=== PATIENT | female | born 1955 | race Caucasian/White ===

== ENCOUNTER 2020-01-01 14:18 | Emergency (ER) | payer MEDICARE ==
[2020-01-01] MEDS ORDERED: Acetaminophen/HYDROcodone 325-5 MG Tab PO ONE (14:19)
[2020-01-01 15:14] VITALS: BP 154/81; PULSE 84
[2020-01-01] MEDS ORDERED: HYDROmorphone 2 MG/ML SDV IVPUSH ONE (15:21)
[2020-01-01] MEDS ORDERED: Sodium Chloride 0.9% 10 ML Syringe FLUSH PRN (15:21)
[2020-01-01] MEDS ORDERED: Promethazine 25 MG/ML SDV IM ONE (15:22)
[2020-01-01] MEDS ORDERED: Sodium Chloride 0.9% 500 ML IV ONE (15:23)
--- NOTE | 2020-01-01 15:29 | EDM.PDOC ---
ED HPI GENERAL MEDICAL PROBLEM - General Chief Complaint: Abdominal Pain Stated Complaint: LEFT FLANK PAIN Time Seen by Provider: 01/01/20 15:25 Source of Information: Reports: Patient History Limitations: Reports: No Limitations - History of Present Illness INITIAL COMMENTS - FREE TEXT/NARRATIVE: Presents with left mid back pain that radiates to LUQ abdomen x 5 days. She is currently being treated with Levaquin and Keflex for right sided pneumonia. Patient endorses N/V. Denies prior history of kidney stones. She has had a ventral hernia x 5 years and is worried that it may be ruptured. Duration: Day(s): (5) Location: Reports: Abdomen L lower abdomen radiating to LLQ Pain Score (Numeric/FACES): 8 - Related Data Allergies Allergy/AdvReac Type Severity Reaction Status Date / Time morphine Allergy Rash Verified 01/01/20 15:03 oxycodone HCl [From Percocet] Allergy Rash Verified 01/01/20 15:03 Penicillins Allergy Swelling Verified 01/01/20 15:03 propoxyphene napsylate Allergy NA Verified 01/01/20 15:03 [From Darvocet-N 100] Home Meds: Home Meds Anastrozole [Arimidex] 1 mg PO DAILY 12/17/12 [History] Lisinopril 20 mg PO DAILY 12/17/12 [History] Omeprazole [Prilosec] 20 mg PO DAILY 12/17/12 [History] atorvaSTATin [Lipitor] 80 mg PO BEDTIME 12/17/12 [History] Aspirin 1 tab PO DAILY 11/05/13 [History] Nitroglycerin [Nitrostat] 1 tab PO ASDIRECTED PRN 11/05/13 [History] Clindamycin HCl 150 mg PO DAILY 01/07/16 [History] Clopidogrel Bisulfate [Clopidogrel] 75 mg PO BEDTIME 01/07/16 [History] Loratadine [Claritin] 10 mg PO DAILY 01/07/16 [History] Multivitamin [Daily Multiple Vitamin] 1 tab PO DAILY 01/07/16 [History] Oxybutynin 5 mg PO DAILY 01/07/16 [History] Acetaminophen/HYDROcodone [[place] 325-5 MG] 1 - 2 tab PO Q6H PRN #16 tab 01/01/20 [Rx] Furosemide [Lasix] 40 mg PO ASDIRECTED PRN 01/01/20 [History] Levofloxacin [Levaquin] 500 mg PO DAILY 01/01/20 [History] Nitrofurantoin Monohyd/M-Cryst [Macrobid 100 mg Capsule] 100 mg PO BID #14 capsule 01/01/20 [Rx] Promethazine [Phenergan] 25 mg PO Q6H PRN #12 tab 01/01/20 [Rx] carvediloL [Coreg] 12.5 mg PO BID 01/01/20 [History] Past Medical History Cardiovascular History: Reports: ME, Stents Other Cardiovascular History: 3 stents and 2 balloons. 2 heart attacks during chemo Respiratory History: Reports: COPD [facility] COORD[employer] History: Reports: Endocrine/Metabolic History: Reports: Obesity/BMI 30+ Oncologic (Cancer) History: Reports: Breast, Malignant Melanoma, Ovarian - Past Surgical History Cardiovascular Surgical History: Reports: Coronary Artery Stent, Percutaneous Transluminal Angioplasty Female Surgical History: Reports: Breast Biopsy, Section, Hysterectomy, Mastectomy, Other (See Below) Social & Family History - Tobacco Use Tobacco Use Status *Q: Current Every Day Tobacco User Tobacco Use Within Last Twelve Months: Cigarettes - Caffeine Use Caffeine Use: Reports: Coffee ED ROS GENERAL - Review of Systems Review Of Systems: Comprehensive ROS is negative, except as noted in HPI. ED EXAM, GI/ABD - Physical Exam Exam: See Below Exam Limited By: No Limitations General Appearance: Alert, WD/WN, No Apparent Distress Throat/Mouth: No Airway Compromise Head: Atraumatic, Normocephalic Neck: Full Range of Motion Respiratory/Chest: No Respiratory Distress, Lungs Clear, Normal Breath Sounds Cardiovascular: Regular Rate, Rhythm, No Murmur GI/Abdominal Exam: Soft, No Distention, Tender (overlying upper abdominal ventral hernia), Other (Ventral hernia successfully reduced) Back Exam: CVA Tenderness (L) Extremities: Normal Range of Motion Neurological: Alert, Normal Cognition Psychiatric: Normal Affect, Normal Mood Skin Exam: Warm, Dry, Intact Course - Vital Signs Last Recorded V/S: Last Vital Signs Temp 36.7 C 01/01/20 14:55 Pulse 84 01/01/20 14:55 Resp 18 01/01/20 14:55 BP 154/81 H 01/01/20 14:55 Pulse Ox 93 L 01/01/20 14:55 - Orders/Labs/Meds Orders: Active Orders 24 hr Category Date Time Status Abdomen Pelvis wo Cont [CT] Stat Exams 01/01/20 15:55 Taken CULTURE URINE [RM] Stat Lab 01/01/20 15:33 Received Nitrofurantoin [place]/Macrocryst [Macrobid] Med 01/01/20 17:17 Once 100 mg PO ONETIME ONE Sodium Chloride 0.9% [Saline Flush] Med 01/01/20 15:21 Active 10 ml FLUSH ASDIRECTED PRN Saline Lock Insert [OM.PC] Routine Oth 01/01/20 15:21 Ordered Medication Orders Sodium Chloride (Saline Flush) 10 ml FLUSH ASDIRECTED PRN PRN Reason: Keep Vein Open Labs: Laboratory Tests 01/01/20 01/01/20 01/01/20 Range/Units 15:33 15:40 15:40 WBC 11.1 (4.5-12.0) X10-3/uL RBC 4.50 (3.23-5.20) x10(6)uL Hgb 14.6 (11.5-15.5) g/dL Hct 42.1 (30.0-51.3) % MCV 93.5 (80-96) fL MCH 32.5 (27.7-33.6) pg MCHC 34.8 (32.2-35.4) g/dL RDW 13.5 (11.5-15.5) % Plt Count 231 (125-369) X10(3)uL MPV 8.2 (7.4-10.4) fL Neut % (Auto) 75.6 (46-82) % Lymph % (Auto) 18.1 (13-37) % [place] % (Auto) 4.9 (4-12) % Eos % (Auto) 1 (1.0-5.0) % Baso % (Auto) 0 (0-2) % Neut # (Auto) 8.5 H (1.6-8.3) # Lymph # (Auto) 2.0 (0.6-5.0) # [place] # (Auto) 0.5 (0.0-1.3) # Eos # (Auto) 0.1 (0.0-0.8) # Baso # (Auto) 0.0 (0.0-0.2) # Sodium 139 (135-145) mmol/L Potassium 3.6 (3.5-5.3) mmol/L Chloride 100 (100-110) mmol/L Carbon Dioxide 31 (21-32) mmol/L BUN 9 (7-18) mg/dL Creatinine 0.6 (0.55-1.02) mg/dL Est Cr Clr Drug Dosing 98.99 mL/min Estimated GFR (MDRD) > 60 (>60) BUN/Creatinine Ratio 15.0 (9-20) Glucose 100 (80-116) mg/dL Calcium 9.5 (8.6-10.2) mg/dL Total Bilirubin 0.8 (0.1-1.3) mg/dL AST 26 H (5-25) IU/L ALT 17 (12-36) U/L Alkaline Phosphatase 174 H (56-112) IU/L Total Protein 7.7 (6.0-8.0) g/dL Albumin 3.0 L (3.2-4.6) g/dL Globulin 4.7 g/dL Albumin/Globulin Ratio 0.6 Lipase (73-393) U/L Urine Color Yellow (YELLOW) Urine Appearance Cloudy (CLEAR) Urine pH 7.0 H (5.0-6.5) Ur Specific [place] 1.010 (1.010-1.025) Urine Protein 30 H (NEGATIVE) mg/dL Urine Glucose (UA) Normal (NORMAL) mg/dL Urine Ketones 15 H (NEGATIVE) mg/dL Urine Occult Blood Large H (NEGATIVE) Urine Nitrite Negative (NEGATIVE) Urine Bilirubin Negative (NEGATIVE) Urine Urobilinogen Normal (NEGATIVE) mg/dL Ur Leukocyte Esterase Large H (NEGATIVE) Urine RBC 10-20 H (0-5) Urine WBC >100 H (0-5) Ur Squamous Epith Cells Moderate H (NS,R,O) Urine Bacteria Moderate H (NS) 01/01/20 Range/Units 15:40 WBC (4.5-12.0) X10-3/uL RBC (3.23-5.20) x10(6)uL Hgb (11.5-15.5) g/dL Hct (30.0-51.3) % MCV (80-96) fL MCH (27.7-33.6) pg MCHC (32.2-35.4) g/dL RDW (11.5-15.5) % Plt Count (125-369) X10(3)uL MPV (7.4-10.4) fL Neut % (Auto) (46-82) % Lymph % (Auto) (13-37) % [place] % (Auto) (4-12) % Eos % (Auto) (1.0-5.0) % Baso % (Auto) (0-2) % Neut # (Auto) (1.6-8.3) # Lymph # (Auto) (0.6-5.0) # [place] # (Auto) (0.0-1.3) # Eos # (Auto) (0.0-0.8) # Baso # (Auto) (0.0-0.2) # Sodium (135-145) mmol/L Potassium (3.5-5.3) mmol/L Chloride (100-110) mmol/L Carbon Dioxide (21-32) mmol/L BUN (7-18) mg/dL Creatinine (0.55-1.02) mg/dL Est Cr Clr Drug Dosing mL/min Estimated GFR (MDRD) (>60) BUN/Creatinine Ratio (9-20) Glucose (80-116) mg/dL Calcium (8.6-10.2) mg/dL Total Bilirubin (0.1-1.3) mg/dL AST (5-25) IU/L ALT (12-36) U/L Alkaline Phosphatase (56-112) IU/L Total Protein (6.0-8.0) g/dL Albumin (3.2-4.6) g/dL Globulin g/dL Albumin/Globulin Ratio Lipase 45 L (73-393) U/L Urine Color (YELLOW) Urine Appearance (CLEAR) Urine pH (5.0-6.5) Ur Specific [place] (1.010-1.025) Urine Protein (NEGATIVE) mg/dL Urine Glucose (UA) (NORMAL) mg/dL Urine Ketones (NEGATIVE) mg/dL Urine Occult Blood (NEGATIVE) Urine Nitrite (NEGATIVE) Urine Bilirubin (NEGATIVE) Urine Urobilinogen (NEGATIVE) mg/dL Ur Leukocyte Esterase (NEGATIVE) Urine RBC (0-5) Urine WBC (0-5) Ur Squamous Epith Cells (NS,R,O) Urine Bacteria (NS) Meds: Medications Generic Name Dose Route Start Last Admin Trade Name Freq PRN Reason Stop Dose Admin Sodium Chloride 10 ml 01/01/20 15:21 Saline Flush FLUSH ASDIRECTED PRN Keep Vein Open Discontinued Medications Generic Name Dose Route Start Last Admin Trade Name Tangela PRN Reason Stop Dose Admin Hydromorphone HCl 0.5 mg 01/01/20 15:21 01/01/20 15:53 Dilaudid IVPUSH 01/01/20 15:22 0.5 mg ONETIME ONE Administration Sodium Chloride 500 mls @ 500 mls/hr 01/01/20 15:23 01/01/20 15:50 Normal Saline IV 01/01/20 16:22 500 mls/hr .BOLUS ONE Administration Promethazine HCl 12.5 mg 01/01/20 15:22 Phenergan IM 01/01/20 15:23 ONETIME ONE Promethazine HCl 12.5 mg 01/01/20 15:50 01/01/20 15:50 Phenergan IV 01/01/20 15:51 12.5 mg ONETIME ONE Administration - Radiology Interpretation Free Text/Narrative:: CT Abd/Pelvis s/ contrast: Lytic lesions in the pelvis. Metastatic deposits in the lower lung bust[place]ante. Ventral hernia, no obstruction. (per Dr. Benson) - Re-Assessments/Exams Free Text/Narrative Re-Assessment/Exam: 01/01/20 17:19 Symptoms improved after [place] and Phenergan. 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 - Discharge Information *PRESCRIPTION DRUG MONITORING PROGRAM REVIEWED*: Yes *COPY OF PRESCRIPTION DRUG MONITORING REPORT IN PATIENT [place]: No Prescriptions: Nitrofurantoin Monohyd/M-Cryst [Macrobid 100 mg Capsule] 100 mg PO BID #14 capsule Acetaminophen/HYDROcodone [[place] 325-5 MG] 1 - 2 tab PO Q6H PRN #16 tab PRN Reason: Pain Promethazine [Phenergan] 25 mg PO Q6H PRN #12 tab PRN Reason: Nausea/Vomiting Instructions: Hernia, Adult, [id number], Urinary Tract Infection, Adult Referrals: Cecilio Egan MD [Primary Care Provider] - Forms: ED Department Discharge Additional Instructions: Fill the prescriptions for Macrobid, [place] and Phenergan at [facility] and take as directed. Discontinue the Keflex (Cephalexin). Drink plenty of fluids. Follow up with your Oncologist in 2-3 days. Return to the ER as needed. Sepsis Event Note (ED) - Evaluation Sepsis Screening Result: No Definite Risk - Focused Exam Vital Signs: Vital Signs Temp Pulse Resp BP Pulse Ox 01/01/20 14:55 36.7 C 84 18 154/81 H 93 L - My Orders Last 24 Hours: My Active Orders 01/01/20 15:21 Sodium Chloride 0.9% [Saline Flush] 10 ml FLUSH ASDIRECTED PRN Saline Lock Insert [OM.PC] Routine 01/01/20 15:33 CULTURE URINE [RM] Stat 01/01/20 15:55 Abdomen Pelvis wo Cont [CT] Stat 01/01/20 17:17 Nitrofurantoin [place]/Macrocryst [Macrobid] 100 mg PO ONETIME ONE - Assessment/Plan Last 24 Hours: My Active Orders 01/01/20 15:21 Sodium Chloride 0.9% [Saline Flush] 10 ml FLUSH ASDIRECTED PRN Saline Lock Insert [OM.PC] Routine 01/01/20 15:33 CULTURE URINE [RM] Stat 01/01/20 15:55 Abdomen Pelvis wo Cont [CT] Stat 01/01/20 17:17 Nitrofurantoin [place]/Macrocryst [Macrobid] 100 mg PO ONETIME ONE
[2020-01-01] MEDS ORDERED: Promethazine 25 MG/ML SDV IV ONE (15:50)
[2020-01-01] MEDS ORDERED: Nitrofurantoin Monohydrate/Macrocrystalline 100 MG Cap PO ONE (17:17)
--- NOTE | 2020-01-02 08:34 | CT ---
INDICATION: Left flank pain, question renal calulus - hematuria. CT ABDOMEN AND PELVIS WITHOUT CONTRAST: Spiral 2.5 mm axial sections were obtained through the abdomen and pelvis without contrast with sagittal and coronal reconstructions 01/01/[address] compared with a CT of the pelvis dated 12/15/11. Total exam DLP was 1665.85 mGy-cm. The heart appears enlarged. No pericardial effusion was seen. There is some linear density at the right lung base anteriorly in the middle lobe which could be on the basis of atelectasis. More posteriorly and adjacent to the heart there is some additional density which could represent a neoplastic process. If previous CT of the chest or upper abdomen is available for comparison, it may be of further diagnostic benefit. Additional focal areas of somewhat suspicious infiltration with some spiculation are noted at the right lower lobe measuring approximately 22 mm on axial image 31, and in the left lobe having a similar somewhat spiculated appearance but much smaller in size measuring approximately 13 mm in the area of the left lower lobe. There are also some heavy markings and possibly minimal infiltrate in the lingula which again could represent scarring or minimal patchy pneumonia or even metastatic disease. Also in the left upper lobe - lingula area, there is a small nodular mass which is soft tissue in density and could represent a metastatic deposit or possibly an early granuloma. No other suggestion of active disease is noted in the lower lung bust[place] and pleural spaces visualized. The right adrenal gland appeared normal. At the left adrenal gland there is a low-density well circumscribed mass measuring 26 mm with a density approximately -3.4 Hounsfield units most likely representing a benign adrenal adenoma. The liver appeared normal with evidence of cholecystectomy. The spleen, pancreas, and kidneys appeared normal without evidence of obstructive uropathy or renal calcinosis. The aorta is calcified with right renal artery calcification, iliac artery calcification and femoral artery calcifications. The urinary bladder is somewhat distended measuring 115 x 164 x 99 mm. There is again noted a ventral hernia which has increased in size in the sagittal projection from 54 x 61 mm on the previous study of 2011 to 58 x 103 mm on the current study. It now includes multiple loops of small bowel, having only had fat within it on the previous study. The opening of this hernia into the abdomen measured approximately 23 x 36 mm - no bowel obstruction was suggested. No other ventral hernias were identified - no inguinal hernia was suggested. The uterus is absent compatible with history of its removal. Distal descending and sigmoid diverticulosis is noted without definite evidence of diverticulitis. No additional mass lesions, organomegaly or free fluid collections were identified in the abdomen or pelvis. At T9 there is a lytic lesion of the vertebral body posteriorly and to the left with some bony sclerosis surrounding it. Etiology is indeterminate. Usual intervertebral disk herniation would be a consideration, but more likely is felt to be a lytic metastatic disease process in this patient with history of breast CA. An additional but similar small lesion is noted at the anterior aspect to the right of the L5 vertebral body. Another lytic lesion is noted in the right iliac bone at the sacroiliac joint and at the vertebral body of S1 to the left with this more lesion on the right in the vertebral body of L4. These lesions in areas visualized on the previous CT scan of 2011 were not present at that time. They are felt to be most likely on the basis of lytic breast metastatic disease. IMPRESSION: 1. Adrenal mass on the left most likely fatty - adrenal adenoma , likely benign in origin measuring 26 mm. 2. No evidence of obstructive uropathy or definite renal masses or renal calcinosis. However, the possibility of pyelonephritis is difficult to exclude - correlate clinically. 3. Distention of the urinary bladder may represent urinary retention. 4. Enlarging ventral hernia, now including multiple loops of small bowel. 5. Post appendectomy. 6. Post hysterectomy. 7. ASD. 8. Nodular and focal spiculated areas of infiltration in the lower lung bustamante, etiology indeterminate could represent metastatic disease process - correlate clinically. 9. Diverticulosis sigmoid colon without definite evidence of diverticulitis. 10. Hypertrophic degenerative changes and disk disease are again present at L5- S1. 11. At T9 there is a lytic lesion of the vertebral body posteriorly and to the left with some bony sclerosis surrounding it. Etiology is indeterminate. Usual intervertebral disk herniation would be a consideration, but more likely is felt to be a lytic metastatic disease process in this patient with history of breast CA. An additional but similar small lesion is noted at the anterior aspect to the right of the L5 vertebral body. Another lytic lesion is noted in the right iliac bone at the sacroiliac joint and at the vertebral body of S1 to the left with this more lesion on the right in the vertebral body of L4. These lesions in areas visualized on the previous CT scan of 2011 were not present at that time. They are felt to be most likely on the basis of lytic breast metastatic disease. Report was called to Dr. Walker at 1658 hours. [facility]
== END 2020-01-01 17:48 | disposition home or self-care (01) ==
LOC: FB.ED 14:18
DX: K43.9 Ventral hernia without obstruction or gangrene (principal); N30.01 Acute cystitis with hematuria; C79.52 Secondary malignant neoplasm of bone marrow; J44.9 Chronic obstructive pulmonary disease, unspecified; E66.9 Obesity, unspecified; F17.210 Nicotine dependence, cigarettes, uncomplicated; Z79.82 Long term (current) use of aspirin; Z90.710 Acquired absence of both cervix and uterus; Z79.02 Long term (current) use of antithrombotics/antiplatelets; Z95.5 Presence of coronary angioplasty implant and graft; Z79.899 Other long term (current) drug therapy; Z68.34 Body mass index [BMI] 34.0-34.9, adult
CPT/HCPCS: 36415; 74176; 80053; 81001; 83690; 85025; 87086; 96374; 96375; 99284-25; A9270-GY; J1170; J2550; J7040